=== PATIENT | female | born 1960 | race Caucasian/White ===

== ENCOUNTER 2022-03-31 10:10 | Outpatient (CLI) | payer OTHER, SELFPAY ==
[2022-03-31 10:17] VITALS: BP 119/88; RESP 16; O2SAT 97
[2022-03-31] MEDS: TETRACAINE 0.5% OPHTH 1 DROP EYE-BOTH ×3 (10:17→11:09)
[2022-03-31] MEDS: BRIMONIDINE TARTRATE 0.2% OPHTH 1 DROP EYE-BOTH (10:17)
--- NOTE | 2022-03-31 15:00 | P.PCN_ITS ---
Procedure Note Will [facility] bill your pro fee for this procedure?: Yes Procedure: SURGEON: Caroline Abbasi MD PREOPERATIVE DIAGNOSIS: Posterior capsular opacity, right and left eye POSTOPERATIVE DIAGNOSIS: Posterior capsular opacity, right and left eye PROCEDURE: YAG laser capsulotomy, both eyes ANESTHESIA: Topical. ESTIMATED BLOOD LOSS: None PATHOLOGY SPECIMEN: None COMPLICATIONS: None INDICATIONS: See consult note for details. The risks, benefits and alternatives of the procedure were explained to the patient, who elected to proceed and signed informed consent to do so. PROCEDURE: The patient was brought to the pre-holding area where the right and left eyes were identified as the operative eyes. I placed my initials above the eyes. The following was given in both eyes: The patient received 2 sets of 1 drop of 0.5% tetracaine and 1 drop of 1% tropicamide. They also received 1 drop of 0.2% brimonidine. They received 1 drop of 0.5% tetracaine immediately prior to bringing them back for the procedure. The patient was then brought to the procedure room where the right and left eyes were again identified as the operative eye. A YAG Isaiah capsulotomy lens was placed on the right eye. The laser was administered using a total number of 9 shots with an energy of 2.4 mJ per shot for a total energy of 22mJ. The patient tolerated the procedure well. A YAG Isaiah capsulotomy lens was placed on the left eye. The laser was administered using a total number of 17 shots with an energy of 2.4 mJ per shot for a total energy of 41 mJ. The patient tolerated the procedure well. DISPOSITION: The patient was taken back to the pre-holding area and given 1 drop of 0.2% brimonidine in both eyes. They were discharged to home in stable condition. The patient was instructed to call me or go to the emergency department with any sudden change, including dramatic loss of vision, severe pain in the eye or eyebrow region, nausea, or vomiting. The patient was instructed to use the 0.2% brimonidine 1 drop 2 times a day in both eyes for one week. The patient will follow up in the clinic in 1-2 weeks.
== END 2022-03-31 10:35 | disposition home or self-care (01) ==
PROVIDERS: PCP Family Medicine; Visit Provider Ophthalmology
DX: H26.9 Unspecified cataract (principal)
CPT/HCPCS: 66821; A9270

== ENCOUNTER 2024-01-25 07:52 | Outpatient (CLI) | payer BC, SELFPAY | END 2024-01-25 07:53 | disposition home or self-care (01) | PROVIDERS: PCP Family Medicine; Visit Provider Family Medicine | DX: E55.9 Vitamin D deficiency, unspecified (principal); Z13.220 Encounter for screening for lipoid disorders; R73.03 Prediabetes | CPT/HCPCS: 80053; 80061; 82306 ==

== ENCOUNTER 2024-02-22 13:46 | Outpatient (CLI) | payer BC, SELFPAY ==
--- NOTE | 2024-02-22 14:00 | MM_ITS ---
Patient: ANH ETIENNE Facility:?[facility] Patient ID:?[id number] Site Patient ID:?[id number] Site :?[id number] Study:?XRay-Breast Bilateral 3D W/CAD-02/22/2024 2:27:48 PM Ordering Physician:Kelli Greene Final Report: BILATERAL SCREENING MAMMOGRAM WITH COMPUTER-AIDED DETECTION AND TOMOSYNTHESIS TECHNIQUE: CC and MLO views were obtained. These mammographic images have been obtained using full-field digital technique. These mammographic images were interpreted with the benefit of computer-aided detection. Breast Tomosynthesis was used in this interpretation. COMPARISON FILM: 06/14/18, 06/09/17, 12/25/15. FINDINGS: There are scattered areas of fibroglandular density. IMPRESSION: There is no radiographic evidence for malignancy. ASSESSMENT: BI-RADS Category 1: Negative RECOMMENDATION: Routine screening mammogram in 1 year. A lay language report of this examination will be provided to the patient. Akhil Oconnor M.D. Diagnostic Radiologist [email or web address] DSM/sp R& Transcribed: 3:52 p.m. SP/Dictated by: Akhil Oconnor MD @ 02/23/2024 1:26:00 PM Signed by:Pinky Oconnor MD @02/23/2024 3:59:49 PM (Electronic Signature)
== END 2024-02-22 13:47 | disposition home or self-care (01) ==
LOC: MAMMO 13:47
PROVIDERS: PCP Family Medicine; Visit Provider Family Medicine
DX: Z12.31 Encounter for screening mammogram for malignant neoplasm of breast (principal)
CPT/HCPCS: 77063; 77067

== ENCOUNTER 2024-02-24 08:35 | Outpatient (CLI) | payer BC, SELFPAY ==
--- NOTE | 2024-02-24 09:08 | W.ANESCHARGE ---
Anesthesia Charges Start Date/Time Anesthesia Start Date: 02/24/24 Anesthesia Start Time: 09:12 Stop Date/Time Anesthesia Stop Date: 02/24/24 Anesthesia Stop Time: 09:41
--- NOTE | 2024-02-24 09:28 | W.ANESCHARGE ---
Anesthesia Charges Start Date/Time Anesthesia Start Date: 02/24/24 Anesthesia Start Time: 09:12 Stop Date/Time Anesthesia Stop Date: 02/24/24 Anesthesia Stop Time: 09:41
== END 2024-02-24 08:36 | disposition home or self-care (01) ==
LOC: OP CLINIC 08:35
PROVIDERS: PCP Family Medicine; Visit Provider Internal Medicine
DX: Z12.11 Encounter for screening for malignant neoplasm of colon (principal)
CPT/HCPCS: 00811; 45378; J2704

== ENCOUNTER 2025-06-13 07:38 | Outpatient (CLI) | payer BC, SELFPAY | END 2025-06-13 07:39 | disposition home or self-care (01) | PROVIDERS: PCP Family Medicine; Visit Provider Family Medicine | DX: E55.9 Vitamin D deficiency, unspecified (principal); E78.5 Hyperlipidemia, unspecified; R53.83 Other fatigue; R73.03 Prediabetes; E66.09 Other obesity due to excess calories; Z68.34 Body mass index [BMI] 34.0-34.9, adult | CPT/HCPCS: 80053; 80061; 82306 ==

== ENCOUNTER 2025-06-27 14:56 | Outpatient (CLI) | payer BC, SELFPAY ==
--- NOTE | 2025-06-27 15:00 | CRLHL7_ITS ---
For Patients: As a result of the Century Cures Act, medical imaging exams and procedure reports are released immediately into your electronic medical record. You may view this report before your referring provider. If you have questions, please contact your health care provider. DXA BONE MINERAL DENSITY STUDY Current height (in): 68. Weight (lb): 228. Menopause age: 49. Ethnicity: White. 1. Have you had a previous hip or vertebral fracture? No. 2. Have you had any fractures during your adult life which did not result from significant trauma (e.g., auto accident)? No. 3. Did either of your parents have a hip fracture? No. 4. Do you smoke? No. 5. Have you ever taken Glucocorticoids? No. 6. Do you have rheumatoid arthritis? No. 7. Do you have secondary osteoporosis? No. 8. Do you drink 3 or more alcoholic drinks per day? No. 9. Are you being treated for osteoporosis? No. 10. Have you ever taken any of the following medications: Actonel, Evista, Fosamax, Miacalcin, Reclast, Boniva, Forteo, HRT (i.e. estrogen/hormone therapy), Protelos, Prolia, Vitamin D, Calcium, other ??? please specify. ANSWER: Yes, Vitamin D, and Calcium. 11. Do you have any of the following medical conditions: Anorexia or bulimia, asthma or emphysema, end stage renal disease, hyperparathyroidism, any seizure disorders, cancer, inflammatory bowel diseases, hysterectomy, other ??? please specify. ANSWER: No. 12. What was your maximum height (inches)? 68.25. 13. Do you perform weight bearing exercise regularly? Yes. 14. Do you regularly consume dairy products? Yes. 15. Do you drink caffeinated beverages? Yes. 16. At what age did your period start? 12. 17. Are you premenopausal? No. 18. How many full term pregnancies have you had? 0. 19. Have you ever missed your period for more than 6 months in a row (not including or menopause)? No. TECHNIQUE: Bone mineral density study was performed using the [employer]. FINDINGS: The results of the study expressed as bone mineral density (BMD) are as follows: Lumbar spine L1 to L4: BMD: 1.212 g/cm2. T-score: 1.5. Z-score: 3.4. Neck Left: BMD: 1.039 g/cm2. T-score: 1.7. Z-score: 3.3. Right: BMD: 0.958 g/cm2. T-score: 1.0. Z-score: 2.6. Total Left: BMD: 1.202 g/cm2. T-score: 2.1. Z-score: 3.4. Right: BMD: 1.128 g/cm2. T-score: 1.5. Z-score: 2.8. IMPRESSION: Normal bone density. Akhil Oconnor M.D. Diagnostic Radiologist [email or web address] DW/Dictated by: Akhil Oconnor MD @ 06/28/2025 11:30:00 AM (Electronically Signed)
== END 2025-06-27 14:57 | disposition home or self-care (01) ==
LOC: RAD 14:56
PROVIDERS: PCP Family Medicine; Visit Provider Family Medicine
DX: Z78.0 Asymptomatic menopausal state (principal)
CPT/HCPCS: 77080

== ENCOUNTER 2025-09-24 15:27 | Outpatient (CLI) | payer BC, SELFPAY ==
--- NOTE | 2025-09-24 15:40 | CRLHL7_ITS ---
For Patients: As a result of the Century Cures Act, medical imaging exams and procedure reports are released immediately into your electronic medical record. You may view this report before your referring provider. If you have questions, please contact your health care provider. INDICATION: BILATERAL SCREENING MAMMOGRAM, ASYMPTOMATIC 65 Y/O FEMALE COMPARISON: 06/14/2018, 06/09/2017 TECHNIQUE: Digital mammogram in CC and MLO projections including computer-aided detection (CAD) and tomosynthesis. BREAST COMPOSITION: There are scattered areas of fibroglandular density. FINDINGS: No suspicious findings. ASSESSMENT: BI-RADS 1 Negative RECOMMENDATION: Annual screening mammogram. A lay language report of this examination will be provided to the patient. Dictated by: Elizabeth Holt MD @ 09/26/2025 07:40:24 (Electronically Signed)
== END 2025-09-24 15:28 | disposition home or self-care (01) ==
LOC: MAMMO 15:27
PROVIDERS: PCP Family Medicine; Visit Provider Family Medicine
DX: Z12.31 Encounter for screening mammogram for malignant neoplasm of breast (principal)
CPT/HCPCS: 77063; 77067